=== PATIENT | male | born 1950 | race Caucasian/White ===

== ENCOUNTER 2021-04-01 11:47 | Emergency (ER) | payer OTHER ==
[~2021-04-01] VITALS: Ht 170.2 cm; Wt 70.8 kg
[2021-04-01] MEDS ORDERED: COZAAR100 MG PO (12:14)
[2021-04-01] MEDS ORDERED: SYNTHROID112 MCG PO (12:14)
[2021-04-01] MEDS ORDERED: [UNRECOGNIZED DRUG - OTHER] PO (16:49)
[2021-04-01] MEDS ORDERED: GABAPENTIN300 M2 PO (16:49)
== END 2021-04-01 17:36 | disposition home or self-care (01) ==
LOC: ER 11:47
DX: G43.819 Other migraine, intractable, without status migrainosus (principal); G44.89 Other headache syndrome; G47.09 Other insomnia; H93.19 Tinnitus, unspecified ear